=== PATIENT | male | born 2000 | race Asian ===

== ENCOUNTER 2019-02-26 15:17 | Emergency (ER) | payer SELFPAY ==
[~2019-02-26] VITALS: Ht 170.2 cm; Wt 68.0 kg
[2019-02-26 15:37] VITALS: BP_SYST 117
[2019-02-26] MEDS ORDERED: KETOROLAC TROMETHAMINE 60 MG/2 ML VIAL IM ONE (16:30)
[2019-02-26 17:01] VITALS: BP_SYST 117
== END 2019-02-26 17:01 | disposition home or self-care (01) ==
LOC: SED 15:17
DX: M25.511 Pain in right shoulder (principal)
CPT/HCPCS: 73030; 99283; J1885